=== PATIENT | female | born 1960 | race Hispanic/Latino ===

== ENCOUNTER → 2017-12-05 | Outpatient (CLI) | payer BC ==
[~2017-12-05] MED LIST: SINCALIDE 3 MCG/VIAL INJ ONE
--- NOTE | 2017-12-05 19:37 | Diagnostic Imaging Report ---
Hepatobiliary Scan with Gallbladder Ejection Fraction Clinical information: 57 F with chronic RUQ abdominal pain Report: Following intravenous administration of 7 millicuries of Tc-99m mebrofenin, dynamic images of the abdomen in the anterior projection were obtained through 40 minutes. Sincalide (CCK analog) 1.8 micrograms was administered intravenously over 30 minutes with additional imaging for determination of gallbladder ejection fraction. Perfusion to the liver is normal. Extraction of tracer from the blood pool by the liver parenchyma is normal. Tracer is seen promptly within the biliary tract. The gallbladder begins to fill by 10 minutes post-injection of tracer and fills adequately although the gallbladder is small. Tracer is seen in the small bowel by 6 minutes. The gallbladder ejection fraction with administration of sincalide is 70% (normal greater than 40%). Impression: 1. Filling of the gallbladder excludes the diagnosis of acute cystic duct obstruction/acute cholecystitis. 2. Normal gallbladder ejection fraction of 70% does not support the clinical diagnosis of chronic cholecystitis/gallbladder dyskinesia. Signed by: Dr. Tanja Garcia M.D. on 12/05/2017 7:34 PM
== END ==
LOC: NM 08:37
PROVIDERS: ATTEND Internal Medicine Gastroenterology
DX: R12 Heartburn (principal); R10.11 Right upper quadrant pain; E66.9 Obesity, unspecified; Z71.3 Dietary counseling and surveillance
CPT/HCPCS: 78227; A9537; J2805